=== PATIENT | male | born 1950 | race Caucasian/White ===

== ENCOUNTER 2019-07-15 05:51 | Inpatient (IN) | payer MEDICARE, BC ==
[2019-07-15] VITALS (9 sets, daily range): BP systolic 121–152; BP diastolic 61–102
[~2019-07-15] VITALS: Ht 190.5 cm; Wt 122.5 kg
[2019-07-15] MEDS ORDERED: FINA5TAB PO (06:24)
[2019-07-15] MEDS ORDERED: FLUT9.9S NS (06:24)
[2019-07-15] MEDS ORDERED: GABA300C18 PO (06:24)
[2019-07-15] MEDS ORDERED: SURGICEL HEMOSTAT 4X8 EACH. ONE ×2 (06:49→09:50)
[2019-07-15] MEDS ORDERED: MORPHINE SULFATE 2 MG/ML VIAL. IV PRN (07:00)
[2019-07-15] MEDS ORDERED: LIDOCAINE 1% PF 2 ML VIAL. ID PRN (07:00)
[2019-07-15] MEDS ORDERED: fentaNYL PF VIAL 100 MCG/2 ML VIAL IV PRN (07:00)
[2019-07-15] MEDS ORDERED: IV RINGERS,LACTATED 1000ML 1,000 ML IV SCH (07:00)
[2019-07-15] MEDS ORDERED: PROCHLORPERAZINE 10 MG/2 ML VIAL. IV PRN (07:00)
[2019-07-15] MEDS ORDERED: ONDANSETRON PF 4 MG/2 ML VIAL. IV PRN (07:00)
[2019-07-15] MEDS ORDERED: ROCURONIUM 50 MG/5 ML VIAL. ONE ×2 (07:08→08:22)
[2019-07-15] MEDS ORDERED: PROPOFOL 20 ML IV ONE (07:08)
[2019-07-15] MEDS ORDERED: LIDOCAINE 2% PF 5 ML VIAL. ONE (07:08)
[2019-07-15] MEDS ORDERED: fentaNYL PF VIAL 100 MCG/2 ML VIAL ONE ×3 (07:09→13:22)
[2019-07-15] MEDS ORDERED: DEXAMETHASONE SOD PHOS 20 MG/5 ML VIAL. ONE (07:09)
[2019-07-15] MEDS ORDERED: ONDANSETRON PF 4 MG/2 ML VIAL. ONE (07:09)
[2019-07-15] MEDS ORDERED: MIDAZOLAM HCL/PF 2 MG/2 ML VIAL. ONE ×2 (07:09→07:10)
[2019-07-15] MEDS ORDERED: REMIFENTANIL 2 MG VIAL. IV ONE ×2 (07:16→10:18)
[2019-07-15] MEDS ORDERED: BUPIVACAINE-EPI 0.5%-1:200000 MPF 30 ML VIAL. INJ ONE (07:45)
[2019-07-15] MEDS ORDERED: PHENYLEPHRINE 10 MG/ML VIAL. ONE (08:18)
[2019-07-15] MEDS ORDERED: DESFLURANE > 120 MINUTES IH ONE (08:18)
[2019-07-15] MEDS ORDERED: NEOSTIGMINE METHYLSULFATE 5 MG/5 ML SYRINGE. ONE (08:20)
[2019-07-15] MEDS ORDERED: GLYCOPYRROLATE 1 MG/5 ML VIAL. ONE (08:20)
[2019-07-15] MEDS ORDERED: 0.9 % SODIUM CHLORIDE 20 ML VIAL. IJ ONE ×2 (10:18)
[2019-07-15] MEDS ORDERED: ceFAZolin SODIUM 1 GM VIAL ONE ×2 (12:13)
[2019-07-15] MEDS ORDERED: KETOROLAC 30 MG/ML VIAL. ONE (12:27)
--- NOTE | 2019-07-15 13:17 | PDOC4 ---
Operative Note Operative Note Operative Note: Preoperative Diagnosis: Right adrenal metastatic tumor Postoperative Diagnosis: Same Procedure: Laparoscopic right adrenalectomy Surgeon: Timothy Scientific Recruiter: Nellie Pearce Anesthesia: Gen. EBL: 100 mL Specimen: Right adrenal tumor to pathology Drains: None Complications: None Indication: The patient is a 69-year-old male a prior history of lung cancer with metastatic involvement of the right adrenal gland. He has had surgical resection of the lung tumor and responded well to adjuvant chemotherapy. The only source of residual tumor now appears to be the right adrenal gland. When presented with options of radiation versus surgery he preferred surgery and was referred for consideration of an adrenalectomy. The risks of surgery were discussed with the patient which include bleeding, infection, visceral injury, major vessel injury, pain, anesthetic risk, mortality risk, potential need for additional surgery or procedure. He understands and would like to proceed. Description: The patient was taken to the operating room and placed supine on the operating table. Gen. anesthesia was performed. He was then placed on a Vac- Pac with his left side down exposing the right abdomen and flank. His right arm was placed on an arm board and his hip was extended at the break of the bed for improved exposure. The abdominal skin was prepped with ChloraPrep and draped in a standard surgical manner. An initial incision was made in the patient's right upper quadrant through which a visualized 5 mm trocar was inserted. Later in the case this was exchanged for an 11 mm port. A pneumoperitoneum was created and the laparoscope is introduced. In the upper midabdomen a 12 mm trocar was placed through which a fan retractor was used to elevate the right lobe of the liver. Along the right subcostal margin two additional 11 mm trochars were inserted. Attention was then directed to the right upper flank. The attachments of the liver were mobilized with cautery dissection to expose location of the adrenal gland. The adrenal tumor was readily seen and appeared firm and quite large. The mobilization of liver was taken all the way superiorly to the diaphragm. The vena cava was then identified as an important landmark for adrenal anatomy. We began the tissues between the adrenal gland and the vena cava. This was quite difficult as the patient seemed to have a marked chronic fibrotic reaction surrounding the adrenal gland likely from the tumor effect. The location of the renal vein was identified inferiorly marking the border of dissection. We were able to eventually mobilize the adrenal gland away from the border of the vena cava and identify the adrenal vein. We dissected the adrenal vein circumferentially. Three clips were placed on the vein and it was divided leaving two on the vena caval side. We then were able to continue to mobilize the adrenal gland away from the vena cava. The Harmonic scalpel assisted with some of this dissection. Mobilization of the adrenal gland proved difficult again due to a prominent surrounding fibrotic reaction likely due to the tumor and or effect of prior chemotherapy. There were a couple of areas that seemed to show small vessels feeding the adrenal gland both medially and inferiorly which were clipped and divided. The majority of the remaining mobilization of the adrenal gland along the posterior retroperitoneum was performed at the Harmonic scalpel. Efforts were made to not directly grasp the adrenal gland or disrupt the tumor. Nevertheless the mobilization proved difficult and some areas of the tumor appeared necrotic. All remaining attachments of the adrenal gland was fully mobilized and it placed in an endoscopic bag. The tumor bed was irrigated with saline which was then suctioned. Hemostasis was good and no other gross abnormalities were seen in the retroperitoneum. The tumor was extracted at the superior abdominal incision site. The skin and fascia incisions had to be extended to allow for intact extraction of the tumor. The specimen was sent to pathology. The peritoneum was approximated with 0 Vicryl and fascia was closed with 0 PDS. The pneumoperitoneum was re-instilled and the abdominal cavity was inspected. Hemostasis appeared good and again no other abnormalities were seen. The remaining ports were removed and the pneumoperitoneum was relieved. Fascia at the remaining trocar sites was closed with 0 Vicryl. Skin was then approximated with 4-0 Monocryl. Steri-Strips and sterile dressings were applied. The patient tolerated the procedure well sent to the recovery room in stable condition. At the end of the case all counts were correct. HUAN EDWARDS MD Jul 15, 2019 13:17
[2019-07-15] MEDS: IV NORMAL SALINE 1000ML BAG 1,000 ML IV SCH (13:19)
[2019-07-15] MEDS: fentaNYL PF VIAL 100 MCG/2 ML VIAL IV PRN ×2 (13:28→13:35)
[2019-07-15] MEDS ORDERED: HYDROcodone/APAP 5/325MG 1 TAB TABLET PO PRN ×2 (13:30)
[2019-07-15] MEDS ORDERED: NALOXONE 0.4 MG/ML VIAL. IV PRN (13:30)
[2019-07-15] MEDS ORDERED: 0.9 % SODIUM CHLORIDE 10 ML DISP.SYRIN. IV PRN (13:30)
[2019-07-15] MEDS: HYDROmorphone 2 MG/ML VIAL IV PRN ×5 (13:37→20:37)
[2019-07-15] MEDS: ONDANSETRON PF 4 MG/2 ML VIAL. IVP PRN ×2 (14:57→21:00)
[2019-07-15] MEDS: IV 1/2 NORMAL SALINE 1,000 ML IV SCH ×3 (15:03→23:00)
[2019-07-15] MEDS ORDERED: IBUP200T44 PO (15:53)
[2019-07-15] MEDS ORDERED: HYDROmorphone 2 MG/ML VIAL IV PRN (16:45)
[2019-07-15] MEDS ORDERED: PROMETHAZINE 25 MG SUPP.RECT. PR PRN (17:00)
[2019-07-15] MEDS ORDERED: POLYVINYL ALCOHOL 1.4% OPHTH SOLUTION 15ML BOTTLE. OU PRN (17:45)
[2019-07-15] MEDS: MAG HYDROX/ALUMINUM HYD/SIMETH 30 ML ORAL.SUSP PO PRN (20:56)
[2019-07-15] MEDS: PANTOPRAZOLE 40 MG TABLET.DR. PO SCH (20:56)
[2019-07-16] MEDS: HYDROmorphone 2 MG/ML VIAL IV PRN ×4 (02:49→16:38)
[2019-07-16 03:00] VITALS: BP 133/53
[2019-07-16] MEDS: PANTOPRAZOLE 40 MG TABLET.DR. PO SCH (05:52)
[2019-07-16 07:00] VITALS: BP 138/52
--- NOTE | 2019-07-16 10:01 | PDOC ---
NATALIE FISCHER APRN 07/16/19 1001: SURGICAL PROGRESS NOTE Subjective nausea last night, taking clears today shoulder pain, right abdomen pain meds are not seeming to help up in chair Vital Signs Vital Signs Date Time Temp Pulse Resp B/P (MAP) Pulse Ox O2 Delivery O2 Flow Rate FiO2 07/16/19 09:47 Room Air 07/16/19 07:00 97.7 75 20 138/52 (80) 92 97.7 07/15/19 20:00 2.0 I&O Intake and Output 07/16/19 07:00 Intake Total 1520 ml Output Total 400 ml Balance 1120 ml Intake Oral 120 ml IV Total 1400 ml Output Urine Total 300 ml Estimated Blood Loss 100 ml # Voids 2 General: Alert, Oriented X3, Cooperative Abdomen: Soft, Other (ND, dressings dry) Assessment/Plan will change to percocet resumed home meds can advance to [place] if clears go ok this AM ambulate more HUAN EDWARDS MD 07/20/19 1002: SURGICAL PROGRESS NOTE Assessment/Plan Agree with above NATALIE FISCHER APRN Jul 16, 2019 10:01 HUAN EDWARDS MD Jul 20, 2019 10:02
[2019-07-16 11:00] VITALS: BP 146/40
[2019-07-16] MEDS: FINASTERIDE 5 MG TABLET. PO SCH (11:07)
[2019-07-16] MEDS: IV NORMAL SALINE 1000ML BAG 1,000 ML IV SCH (13:19)
[2019-07-16] MEDS: GABAPENTIN 300 MG CAPSULE. PO SCH ×2 (13:23→20:32)
[2019-07-16] MEDS: oxyCODONE/APAP 5/325 1 TAB TABLET PO PRN ×2 (13:24→19:37)
[2019-07-16 15:00] VITALS: BP 120/60
--- NOTE | 2019-07-16 15:38 | NUR ---
SW following for discharge planning. Discussed with RN. Pt is from home with . CA dx. Trying to control pain here. Pt is up ad deanne. RN advised no SW needs at this time. SW will continue to follow.
[2019-07-16 19:00] VITALS: BP 142/64
[2019-07-16] MEDS: MAG HYDROX/ALUMINUM HYD/SIMETH 30 ML ORAL.SUSP PO PRN (20:48)
--- NOTE | 2019-07-16 20:55 | NUR ---
Patient c/o sharp chest pain. Dr. Montejo notified and orders received for STAT EKG and CXR. Consult for hospitalist medical management also received. Patient in chair, call light within reach and family at bedside, will continue to monitor
--- NOTE | 2019-07-16 21:24 | RAD ---
Indication: Chest pain TECHNIQUE:Portable AP chest X-ray COMPARISON: None FINDINGS: Heart is normal in size. Subsegmental atelectasis or scarring is seen in the right lung base. There is right subdiaphragmatic lucency. No pneumothorax or pleural effusion. Visualized bony thorax within normal limits. IMPRESSION: No acute pulmonary process. Right subdiaphragmatic lucency concerning for pneumoperitoneum which may be from patient's recent surgery. Critical findings were identified on 07/16/2019 9:10 PM, read back and verified with Nurse Lyric on 07/16/2019 9:[address] Marques Ace DO. Electronically signed by: Marques Ace DO (07/16/2019 9:21 PM) [facility]
[2019-07-16] MEDS ORDERED: ENOXAPARIN 40 MG/0.4 ML SYRINGE. SQ SCH (21:30)
--- NOTE | 2019-07-16 21:33 | EKG ---
[facility] [address] [place] [address] Test Date: 2019-07-16 Test Time: 21:26:36 Pat Name: KI GIL Department: Room: [facility] Gender: M Title Department Manager: SANDRA : 1950 Requested By: DINAH CONRAD Order Number: [id number] Reading MD: Measurements Intervals [place] Rate: 62 P: 38 CA: 176 QRS: 21 QRSD: 116 T: -12 QT: 398 QTc: 406 Interpretive Statements SINUS RHYTHM INCOMPLETE RIGHT BUNDLE BRANCH BLOCK T ABNORMALITY IN INFERIOR LEADS ABNORMAL ECG RI6.01 No previous ECG available for comparison
--- NOTE | 2019-07-16 21:45 | NUR ---
MD aware of critical Chest Xray results, orders received at this time.
[2019-07-16 22:34] LABS: BASO # 0.1 x10^3/uL (0.0-0.2); BASO % 1 % (0-3); EOS # 0.1 x10^3/uL (0.0-0.7); EOS % 1 % (0-3); HEMATOCRIT 42.3 % (39.0-53.0); HEMOGLOBIN 14.6 g/dL (13.0-17.5); LYMPH # 1.1 x10^3/uL (1.0-4.8); LYMPH % 13 % (24-48); MEAN CORPUSCULAR HEMOGLOBIN 31 pg (25-35); MEAN CORPUSCULAR HGB CONC 34 g/dL (31-37); MEAN CORPUSCULAR VOLUME 89 fL (79-100); MONO # 0.9 x10^3/uL (0.0-1.1); MONO % 10 % (0-9); NEUT # 6.5 x10^3/uL (1.8-7.7); NEUT % 74 % (31-73); PLATELET COUNT 133 x10^3/uL (140-400); RED BLOOD COUNT 4.77 x10^6/uL (4.30-5.70); WHITE BLOOD COUNT 8.7 x10^3/uL (4.0-11.0)
[2019-07-16 22:51] LABS: ALBUMIN 3.4 g/dL (3.4-5.0); CALCIUM 8.5 mg/dL (8.5-10.1); GFR 74.3; POTASSIUM 4.2 mmol/L (3.5-5.1); TOTAL BILIRUBIN 0.4 mg/dL (0.2-1.0); TOTAL PROTEIN 6.7 g/dL (6.4-8.2)
[2019-07-16 23:00] VITALS: BP 126/68
[2019-07-16] MEDS: IV 1/2 NORMAL SALINE 1,000 ML IV SCH (23:46)
[2019-07-17] MEDS: oxyCODONE/APAP 5/325 1 TAB TABLET PO PRN ×2 (01:20→08:22)
[2019-07-17 03:00] VITALS: BP 130/67
--- NOTE | 2019-07-17 06:08 | NUR ---
Hourly rounds completed at this time. Patient rated pain at 6/10 and requested IV pain medication, "...instead of the pills". Patient educated on the use of IV pain medication particuarly in the instances when a patient is NPO and/or if pain is uncontrolled by the maximum prescribed oral pain medication. Patient received PRN Percocet approximately 4 hours prior to this request for IV pain meds and PRN dose is available at this time but patient declined PO medication. Patient's heat pack rewarmed and patient in chair resting, will continue to monitor.
[2019-07-17 07:00] VITALS: BP 116/62
[2019-07-17] MEDS: PANTOPRAZOLE 40 MG TABLET.DR. PO SCH (08:21)
[2019-07-17] MEDS: FINASTERIDE 5 MG TABLET. PO SCH (08:21)
[2019-07-17] MEDS: GABAPENTIN 300 MG CAPSULE. PO SCH ×2 (08:21→13:32)
[2019-07-17] MEDS ORDERED: POLYETHYLENE GLYCOL 3350 17 GM PACKET. PO PRN (09:00)
[2019-07-17] MEDS: IV NORMAL SALINE 1000ML BAG 1,000 ML IV SCH (09:23)
[2019-07-17 11:00] VITALS: BP 123/59
[2019-07-17] MEDS ORDERED: OXYC1TAB15 PO (12:15)
--- NOTE | 2019-07-17 12:32 | PDOC ---
NATALIE FISCHER TRICK RODEO RIDER 07/17/19 1232: SURGICAL PROGRESS NOTE Subjective tolerating diet pain is much better controlled + flatus Vital Signs Vital Signs Date Time Temp Pulse Resp B/P (MAP) Pulse Ox O2 Delivery O2 Flow Rate FiO2 07/17/19 11:00 97.8 62 18 123/59 (80) 93 Room Air 97.8 I&O Intake and Output 07/17/19 07:00 Intake Total 1650 ml Output Total 0 ml Balance 1650 ml Intake Oral 650 ml IV Total 1000 ml Emesis 0 ml # Voids 5 General: Alert, Oriented X3, Cooperative Abdomen: Soft (ND, lap sites c/d/i, no erythema ) Labs Laboratory Tests Test 07/16/19 22:22 07/17/19 04:00 White Blood Count 8.7 x10^3/uL (4.0-11.0) Red Blood Count 4.77 x10^6/uL (4.30-5.70) Hemoglobin 14.6 g/dL (13.0-17.5) Hematocrit 42.3 % (39.0-53.0) Mean Corpuscular Volume 89 fL (79-100) Mean Corpuscular Hemoglobin 31 pg (25-35) Mean Corpuscular Hemoglobin Concent 34 g/dL (31-37) Red Cell Distribution Width 14.0 % (11.5-14.5) Platelet Count 133 x10^3/uL (140-400) Neutrophils (%) (Auto) 74 % (31-73) Lymphocytes (%) (Auto) 13 % (24-48) Monocytes (%) (Auto) 10 % (0-9) Eosinophils (%) (Auto) 1 % (0-3) Basophils (%) (Auto) 1 % (0-3) Neutrophils # (Auto) 6.5 x10^3/uL (1.8-7.7) Lymphocytes # (Auto) 1.1 x10^3/uL (1.0-4.8) Monocytes # (Auto) 0.9 x10^3/uL (0.0-1.1) Eosinophils # (Auto) 0.1 x10^3/uL (0.0-0.7) Basophils # (Auto) 0.1 x10^3/uL (0.0-0.2) Sodium Level 136 mmol/L (136-145) Potassium Level 4.2 mmol/L (3.5-5.1) Chloride Level 101 mmol/L (98-107) Carbon Dioxide Level 25 mmol/L (21-32) Anion Gap 10 (6-14) Blood Urea Nitrogen 17 mg/dL (8-26) Creatinine 1.0 mg/dL (0.7-1.3) Estimated GFR (Cockcroft-Gault) 74.3 BUN/Creatinine Ratio 17 (6-20) Glucose Level 189 mg/dL (70-99) Calcium Level 8.5 mg/dL (8.5-10.1) Total Bilirubin 0.4 mg/dL (0.2-1.0) Aspartate Amino Transf (AST/SGOT) 45 U/L (15-37) Alanine Aminotransferase (ALT/SGPT) 68 U/L (16-63) Alkaline Phosphatase 68 U/L (46-116) Troponin I Quantitative < 0.017 ng/mL (0.000-0.055) 0.019 ng/mL (0.000-0.055) Total Protein 6.7 g/dL (6.4-8.2) Albumin 3.4 g/dL (3.4-5.0) Albumin/Globulin Ratio 1.0 (1.0-1.7) Laboratory Tests Test 07/16/19 22:22 07/17/19 04:00 White Blood Count 8.7 x10^3/uL (4.0-11.0) Red Blood Count 4.77 x10^6/uL (4.30-5.70) Hemoglobin 14.6 g/dL (13.0-17.5) Hematocrit 42.3 % (39.0-53.0) Mean Corpuscular Volume 89 fL (79-100) Mean Corpuscular Hemoglobin 31 pg (25-35) Mean Corpuscular Hemoglobin Concent 34 g/dL (31-37) Red Cell Distribution Width 14.0 % (11.5-14.5) Platelet Count 133 x10^3/uL (140-400) Neutrophils (%) (Auto) 74 % (31-73) Lymphocytes (%) (Auto) 13 % (24-48) Monocytes (%) (Auto) 10 % (0-9) Eosinophils (%) (Auto) 1 % (0-3) Basophils (%) (Auto) 1 % (0-3) Neutrophils # (Auto) 6.5 x10^3/uL (1.8-7.7) Lymphocytes # (Auto) 1.1 x10^3/uL (1.0-4.8) Monocytes # (Auto) 0.9 x10^3/uL (0.0-1.1) Eosinophils # (Auto) 0.1 x10^3/uL (0.0-0.7) Basophils # (Auto) 0.1 x10^3/uL (0.0-0.2) Sodium Level 136 mmol/L (136-145) Potassium Level 4.2 mmol/L (3.5-5.1) Chloride Level 101 mmol/L (98-107) Carbon Dioxide Level 25 mmol/L (21-32) Anion Gap 10 (6-14) Blood Urea Nitrogen 17 mg/dL (8-26) Creatinine 1.0 mg/dL (0.7-1.3) Estimated GFR (Cockcroft-Gault) 74.3 BUN/Creatinine Ratio 17 (6-20) Glucose Level 189 mg/dL (70-99) Calcium Level 8.5 mg/dL (8.5-10.1) Total Bilirubin 0.4 mg/dL (0.2-1.0) Aspartate Amino Transf (AST/SGOT) 45 U/L (15-37) Alanine Aminotransferase (ALT/SGPT) 68 U/L (16-63) Alkaline Phosphatase 68 U/L (46-116) Troponin I Quantitative < 0.017 ng/mL (0.000-0.055) 0.019 ng/mL (0.000-0.055) Total Protein 6.7 g/dL (6.4-8.2) Albumin 3.4 g/dL (3.4-5.0) Albumin/Globulin Ratio 1.0 (1.0-1.7) Assessment/Plan s/p adrenalectomy improved would plan to dc home this afternoon HUAN EDWARDS MD 07/20/19 1002: SURGICAL PROGRESS NOTE Assessment/Plan agree with above NATALIE FISCHER APRN Jul 17, 2019 12:32 HUAN EDWADRS MD Jul 20, 2019 10:02
--- NOTE | 2019-07-17 12:33 | DISCH ---
DISCHARGE INSTRUCTIONS Condition on Discharge Condition on Discharge: Stable Activity After Discharge Activity Instructions for Disc: Activity as tolerated Lifting Instructions after Dis: No heavy lifting Wound Incision Care Wound/Incision Care: May get incision wet Contacting the after DC Call your doctor for: Concerns you may have Follow-Up Follow up with: Dr Aguirre 2 weeks, call to schedule [phone] NATALIE FISCHER APRN Jul 17, 2019 12:33
--- NOTE | 2019-07-17 12:36 | NUR ---
SW following for discharge planning. Chart reviewed, discussed with RN. Pt is from home with . Pt has order for discharge home with self care. Diet being advanced. RN advised no SW needs. SW will continue to follow should any discharge planning needs arise.
[2019-07-17] MEDS: IV 1/2 NORMAL SALINE 1,000 ML IV SCH (13:33)
--- NOTE | 2019-07-17 14:40 | NUR ---
Discharge Note: CARIN GIL Discharge instructions and discharge home medications reviewed with Patient and a copy given. All questions have been answered and understanding verbalized. The following instructions and handouts were given: information about medications, follow up appointments, incisional care instructions, after care sheet for adrenalectomy, diet, activity, etc. Discontinued lines and drains: IV line in right hand removed, catheter tip intact. Patient discharged to home with self care with son, wheelchair used for mobility to discharge vehicle.
--- NOTE | 2019-07-18 01:00 | CONS ---
DATE OF CONSULTATION: 07/17/2019 CHIEF COMPLAINT: Postop renal mass resection request for medical evaluation and treatment of comorbidities. HISTORY OF PRESENT ILLNESS: The patient is a pleasant middle-aged male who has metastatic lung cancer. He apparently had an adrenal mass. He went for surgery. We have been requested for postop medical evaluation and treatment of comorbidities. PAST MEDICAL HISTORY: Previous tobacco abuse, metastatic lung cancer. ALLERGIES: AMOXICILLIN AND MORPHINE. FAMILY HISTORY: Coronary artery disease. SOCIAL HISTORY: Does not drink, smoke or take drugs. I guess he used to smoke. 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 MEDICATIONS: Reviewed, please refer to the MRAD. REVIEW OF SYSTEMS: GENERAL: No history of weight change or fevers. He complains of weakness. SKIN: No bruising, hair changes or rashes. EYES: No blurred, double or loss of vision. NOSE AND THROAT: No history of nosebleeds, hoarseness or sore throat. HEART: No history of palpitations, chest pain or shortness of breath on exertion. LUNGS: Denies cough, hemoptysis, wheezing or shortness of breath. GASTROINTESTINAL: Denies changes in appetite, nausea, vomiting, diarrhea or constipation. GENITOURINARY: No history of frequency, urgency, hesitancy or nocturia. NEUROLOGIC: Denies history of numbness, tingling, tremor. PSYCHIATRIC: No history of panic, anxiety or depression. ENDOCRINE: No history of heat or cold intolerance, polyuria or polydipsia. EXTREMITIES: Denies muscle weakness, joint pain, pain on walking or stiffness. PHYSICAL EXAMINATION: VITALS: Within normal limits and are stable. GENERAL: No apparent distress. Alert and oriented. HEENT: Normal cephalic atraumatic, external auditory canals are patent. EYES: Extraocular muscles are intact, pupils are equally round and reactive to light and accommodation. MUSKULOSKELETAL: Well developed, well nourished, good range of motion. ENDOCRINE: No thyromegaly was palpated. LYMPHATICS: No cervical chain or axillary nodes were noted. HEMATOPOIETIC: No bruising. NECK: Supple, no JVD, no thyromegaly was noted. LUNGS: Clear to auscultation in all lung hooker without rhonchi or wheezing. HEART: RRR, S1, S2 present. Peripheral pulses intact, no obvious murmurs were noted. ABDOMEN: Soft, nontender. Positive bowel sounds no organomegaly, normal bowel sounds. EXTREMITIES: Without any cyanosis, clubbing, or edema. Pedal pulses intact, Homans sign is negative. NEUROLOGIC: Normal speech, normal tone. A & O x 3, moves all extremities, no obvious focal deficits. PSYCHIATRIC: Normal affect, normal mood. Stable. SKIN: No ulcerations or rashes, good skin turgor, no jaundice. VASCULAR: Good capillary refill, neurovascular bundle appears to be intact. LABORATORY DATA: Hematology is normal. Electrolytes are normal. ASSESSMENT AND PLAN: Postoperative resection of adrenal mass from metastatic lung cancer. Clinically, the patient is ready for discharge from my standpoint. If he gets discharged today, would follow up with the PCP in a week. For now, continue home meds, p.r.n. pain meds, and wound care. ANJU MERCADO DO DR: TORIE/dave JOB#: [id number] / [id number]
--- NOTE | 2019-07-20 15:07 | PATHOLOGY ---
[facility] Accession Number: [id number] . 01 Material submitted: . adrenal gland - RIGHT ADRENAL GLAND. Modifiers: right . 01 Clinical history: . Right adrenal mass . 01 Frozen section diagnosis: . . /QMS . 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 SEE COMMENT. LBQ 07/20/2019 1403 Local . 02 Comment: Sections of the right adrenal gland mass show extensive replacement of adrenal gland by a metastatic epithelial neoplasm. The neoplasm is composed of large epithelioid cells and spindle cells which possess enlarged, rounded to ovoid nuclei containing prominent nucleoli. There are focal anaplastic tumor giant cells. The tumor in one focus shows apparent glandular differentiation. The tumor shows no obvious keratinization. There is focal tumor necrosis and there is prominent tumor associated hemorrhage. Areas of hemorrhage are focally bounded by a thick wall of fibrous tissue containing hemosiderin laden macrophages and showing focal dystrophic calcifications. There are a few foci of residual adrenal cortex within the wall of the hemorrhagic metastatic deposit. A panel of immunoperoxidase stains is obtained on block A7 and yields the following results: . AE1/AE3: Tumor cells positive CAM5.2: Tumor cells focally weakly positive Cytokeratin 7: Tumor cells positive Inhibin: Tumor cells negative; residual adrenal cortical cells positive TTF-1: Tumor cells positive Napsin A: Tumor cells focally positive P40: Tumor cells negative CK5/6: Few tumor cells focally positive . 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 The findings are consistent with lung origin. The case is also examined by Dr. Encinas, who concurs with the diagnosis. (JPM/db/indira; 07/20/2019) . Special stains performed: Immunoperoxidase stains for AE1/AE3, CAM5.2, CK7, inhibin, TTF-1, napsin A, p40, CK5/6. . 02 Electronically signed: . Lee Hernandez MD, Pathologist NPI- [id number] . 01 Gross description: . The specimen is received in formalin, labeled "Kenneth Wilkins, right adrenal gland, history of metastatic cancer". Received is a 66 g segment of yellow-acharya to pink-ryan soft tissue measuring 6.1 x 5.5 x 4.1 cm in greatest dimensions. The surgical margin is inked. Sectioning reveals a large cystic mass measuring 5.0 x 4.7 x 3.4 cm in greatest dimensions, filled with red-brown possible blood coagulum. The cyst wall lining grossly abuts the inked surface, and measures up to 0.2 cm in thickness. A slight amount of normal-appearing adrenal gland is identified within the surrounding fat. The cystic mass encompasses approximately 90% of the specimen. Within the fat there is a focus of solid white tissue measuring approximately 1.2 cm in maximum dimensions, which grossly approaches the inked surface. The specimen is submitted representatively as follows: . A1-A5 service representative sections of cystic mass, with sections of normal-appearing adrenal gland submitted in cassette A5 A6-A8 entire focus of solid white tissue adjacent to cystic mass. (CAA; 07/16/2019) QA/[facility] 07/16/2019 0916 Local . 02 Pathologist provided ICD-10: C79.71 . 02 CPT . 372410, [id number], [id number] Specimen Comment: A courtesy copy of this report has been sent to [phone], [phone] Specimen Comment: [id number] Specimen Comment: Report sent to and Performed at: 01 [facility] [address], [place] [id number] MD Abrahan Warren MD Phone: [phone] Performed at: [address] [facility] [address] [place], [place] [id number] MD Lee Hernandez MD Phone: [phone]
== END 2019-07-17 14:40 | disposition home or self-care (01) | DRG 614 ==
LOC: SURG 05:51 → OBSVTOIN 13:19 → 4 NORTH 13:19
PROVIDERS: ADMIT Surgery; ATTEND Surgery
PROC: 0GB34ZZ Excision of Right Adrenal Gland, Percutaneous Endoscopic Approach (ICD-10-PCS; principal; 2019-07-15 07:30)
DX: C79.71 Secondary malignant neoplasm of right adrenal gland (principal); C34.90 Malignant neoplasm of unspecified part of unspecified bronchus or lung; Z82.49 Family history of ischemic heart disease and other diseases of the circulatory system; E66.9 Obesity, unspecified; Z85.118 Personal history of other malignant neoplasm of bronchus and lung; Z87.891 Personal history of nicotine dependence; Z92.21 Personal history of antineoplastic chemotherapy; Z88.8 Allergy status to other drugs, medicaments and biological substances; Z79.899 Other long term (current) drug therapy; Z68.33 Body mass index [BMI] 33.0-33.9, adult
CPT/HCPCS: 36415; 71045; 80053; 84484; 85025; 86850; 86900; 86901; 88307; 88341; 88342; 93005; A7015; J0690; J0696; J1100; J1170; J1650; J1885; J2001; J2250; J2405; J2704; J2710; J3010; J3490; J7030; G0378